=== PATIENT | female | born 1985 | race Hispanic/Latino ===

== ENCOUNTER → 2017-04-05 | Day surgery (SDC) | payer OTHER ==
[~2017-04-05] VITALS: Ht 154.9 cm; Wt 80.7 kg
[~2017-04-05] MED LIST: FERROUS SULFAT325 M1 PO; LEVOTHYROXIN0.112 MG PO; PERCOCET 325 MG1 TA2 PO; PHENTERMINE H37.5 M1 PO; SYNTHROID0.1 MG PO; SYNTHROID125 MCG PO; VITAMIN D50000 IU PO
[2017-04-05 09:38] LABS: ABSOLUTE BASOPHIL COUNT 0 /CUMM (0.0-0.2); ABSOLUTE EOSINOPHIL COUNT 0.3 /CUMM (0.0-0.7); ABSOLUTE GRANULOCYTE CT 5.7 /CUMM (1.4-6.5); ABSOLUTE LYMPH COUNT 2.8 /CUMM (1.2-3.4); ABSOLUTE MONOCYTE COUNT 0.4 /CUMM (0.10-0.60); BASOPHIL % 0.5 % (0.0-2.0); EOSINOPHIL % 2.9 % (0-5); GRANULOCYTE % 61.2 % (42.2-75.2); HEMATOCRIT 36.7 % (37-47); MEAN CORPUSCULAR HGB 27.2 PG (27.0-31.0); MEAN CORPUSCULAR HGB CONC 32.9 G/DL (33.0-37.0); MEAN CORPUSCULAR VOLUME 82.7 FL (81.0-99.0); MEAN PLATELET VOLUME 7.7 FL (7.4-10.4); PLATELET COUNT 387 /CUMM (130-400); RBC DISTRIBUTION WIDTH 13.7 % (11.5-14.5); RED BLOOD CELL CT 4.44 /CUMM (4.20-5.40); WHITE BLOOD CELL COUNT 9.3 /CUMM (4.8-10.8)
[2017-04-05 09:49] LABS: PT 11.4 SEC (9.4-12.5); PTT 29 SEC (25-37)
--- NOTE | 2017-04-06 11:32 | ULTRASOUND REPORT ---
EXAMINATION: INTRAOPERATIVE ULTRASONOGRAPHY CLINICAL INDICATION: D\T\C and ultrasound-guided cryoablation. COMPARISON: None TECHNIQUE/FINDINGS: Ultrasound equipment was dedicated to the operating room for the performance of an intraoperative procedure. 7 images were acquired and are archived in PACS. Please refer to operative notes for procedural detail. IMPRESSION: Administrative dictation for intraoperative ultrasonography and image archiving in PACS. Please refer to operative notes for details.
--- NOTE | 2017-04-06 16:26 | Operative Report ---
Operative/Inv Procedure Report Surgery Date: 04/05/17 Name of Procedure: D&C cryoablation the uterus under ultrasound guidance Pre-Operative Diagnosis: Menorrhagia Post-Operative Diagnosis: Same Estimated Blood Loss: less than 50ml Surgeon/Adobe Flex Developer: Everett OQUENDO,Ashlee Rosales Anesthesia: moderate sedation Operative/Procedure Note Note: Procedure note patient is taking the operating room placed on position after adequate anesthesia patient placed in dorsolithotomy position the vagina from dorsal fashion bladder was catheterized examination under anesthesia performed single-tooth tenaculum placed on the Intralipid surgeons down traction patient tolerated that well. At this point cervix was side 29 Hegar to left insertion of a sharp curet sharp curettage and cervical lysed form Sharp curettage of the endometrial lining was performed 2 specimen sent to pathology at this point the bladder was catheterized filled approximately 250 mL normal saline I Silvadene ultrasound to be performed during cryoablation phases surgery cryoprobe was placed gently under ultrasound guidance into the uterine cavity care was taken not to perforate the uterus which was evident by the ultrasound 8 minutes on each side cryoablation was performed the probe was heated and removed all instruments removed from the vagina the patient was returned spine position she was awakened from anesthesia and transferred recovery room awake alert counts correct
== END ==
LOC: STS 01:44 → XRY 07:00 → STS 07:00 → XRY 11:00
PROVIDERS: Specialist
DX: N92.1 Excessive and frequent menstruation with irregular cycle (principal); E03.9 Hypothyroidism, unspecified; R94.5 Abnormal results of liver function studies
CPT/HCPCS: 36415; 76998; 81001; 81025; 88305; J2250

== ENCOUNTER → 2017-05-16 | Day surgery (SDC) | payer OTHER ==
[~2017-05-16] VITALS: Ht 154.9 cm; Wt 80.7 kg
[~2017-05-16] MED LIST changes: +CEPHALEXIN500 M3 PO; +KETOROLAC TROME10 M1 PO; +NORCO 5-325 TA1 EACH PO; +OXYCODONE-ACET1 EACH PO
--- NOTE | 2017-05-16 14:32 | Operative Report ---
Operative/Inv Procedure Report Surgery Date: 05/16/17 Name of Procedure: Cystoscopy, right ureteroscopy, laser lithotripsy of right ureteral calculus, right retrograde pyelogram, insertion of right double-J ureteral stent Pre-Operative Diagnosis: Right ureteral calculus Post-Operative Diagnosis: Same Estimated Blood Loss: scant Surgeon/Dial Marker: Demarcus OQUENDO,Juan Kerr Anesthesia: laryngeal mask airway Drains: 24 cm 6 [place]an right double-J ureteral stent with long suture Specimens: Urine culture and right ureteral stone fragments Complications: None Condition: Stable Operative Indication: 7 mm right ureteral calculus with right flank pain Operative/Procedure Note Note: The patient was taken to the operating room and identified. She is placed in supine position on the operating table. Timeout was executed appropriately with the patient awake. Gen. anesthesia was induced via LMA. She was then placed in dorsolithotomy position and prepped and draped in usual fashion for cystoscopy. Surgical pause was executed appropriately. Fluoroscopy images taken with a marker on the right side of the abdomen to confirm the correct side of the surgery as well as a correct orientation of the fluoroscopy image. The 22 [place]an cystoscope sheath was placed into the bladder and cystoscopy performed. There were signs of cystitis cystica. Right and left ureteral orifices were normal in location and appearance. Urine specimen was taken for culture. A guidewire was placed through the cystoscope into the right ureter up to the level of the right kidney. Of note the stone could not be seen on fluoroscopy. The cystoscope was removed leaving the guidewire in place. A double-lumen dilating catheter was placed over the wire. A second wire was placed. Leksell ureteroscope was advanced over the second wire. The stone was visualized overlying the sacroiliac joint. Proximal to this the ureter was dilated. Using the 273 holmium laser fiber the stone was fragmented into multiple fragments. Using a spiral basket several fragments were removed. The remaining fragments were felt to be small enough to pass spontaneously. At this point the ureteroscope was removed. The cystoscope was back loaded onto the guidewire. Open-ended catheter was placed over the wire which was subsequently removed. Some contrast was injected to outline the right renal collecting system. A guidewire was placed back through the open-ended catheter which was removed. Under visual fluoroscopic control a 24 cm 6 [place] right double-J ureteral stent was placed with a long suture attached the distal end. Fluoroscopy confirmed the proximal and the stent coiled in an upper pole calyx and distal end coiled in the bladder. Patient tolerated the procedure well and as completion was taken recovery room in stable condition. Completes the operative dictation on the grant of the Findings: 7 mm calculus in right mid ureter overlying the sacroiliac joint Discharge Disposition: PACU
--- NOTE | 2017-05-18 06:44 | RADIOLOGY REPORT ---
EXAMINATION: Intraoperative fluoroscopy CLINICAL INFORMATION: Ureteroscopy with right stent placement COMPARISON: CT abdomen pelvis 05/04/2017 TECHNIQUE: Intraoperative fluoroscopy was provided for use by Dr. Tracy. A total of 44 images were saved to PACS. No radiologist was present during today's procedure. TOTAL FLUOROSCOPIC TIME: 1.1 minutes FINDINGS\E\IMPRESSION: Intraoperative fluoroscopy provided for use by Dr. Tracy. Please see operative note for detailed findings.
== END ==
LOC: STS 01:20
DX: N20.1 Calculus of ureter (principal); Z87.891 Personal history of nicotine dependence; K21.9 Gastro-esophageal reflux disease without esophagitis; E07.9 Disorder of thyroid, unspecified
CPT/HCPCS: 74018; 87086; C2617; J0131; J0690; J1885; J2250; J3250

== ENCOUNTER 2017-05-18 15:22 | Inpatient (IN) | payer OTHER ==
[~2017-05-18] VITALS: Ht 154.9 cm; Wt 80.7 kg
[~2017-05-18 15:22] MED LIST changes: -CEPHALEXIN500 M3 PO; -OXYCODONE-ACET1 EACH PO
[2017-05-18 16:16] LABS: ABSOLUTE BASOPHIL COUNT 0.1 /CUMM (0.0-0.2); ABSOLUTE EOSINOPHIL COUNT 0.1 /CUMM (0.0-0.7); ABSOLUTE GRANULOCYTE CT 17.8 /CUMM (1.4-6.5); ABSOLUTE LYMPH COUNT 1.9 /CUMM (1.2-3.4); ABSOLUTE MONOCYTE COUNT 1.1 /CUMM (0.10-0.60); BASOPHIL % 0.5 % (0.0-2.0); EOSINOPHIL % 0.3 % (0-5); GRANULOCYTE % 84.8 % (42.2-75.2); HEMATOCRIT 24.2 % (37-47); MEAN CORPUSCULAR HGB 27.3 PG (27.0-31.0); MEAN CORPUSCULAR HGB CONC 33.4 G/DL (33.0-37.0); MEAN CORPUSCULAR VOLUME 81.9 FL (81.0-99.0); MEAN PLATELET VOLUME 7.4 FL (7.4-10.4); PLATELET COUNT 366 /CUMM (130-400); RBC DISTRIBUTION WIDTH 14.1 % (11.5-14.5); RED BLOOD CELL CT 2.96 /CUMM (4.20-5.40)
--- NOTE | 2017-05-18 17:33 | ULTRASOUND REPORT ---
EXAMINATION: US RETROPERITONEAL COMPLETE (RENAL) CLINICAL INFORMATION: Right kidney stent removed today. Pain since removal.. COMPARISON: CT scan abdomen pelvis 06/04/2017. Ultrasound abdomen 10/31/2016. TECHNIQUE: Real-time imaging of the kidneys and bladder. Color Doppler exam used. FINDINGS: RIGHT KIDNEY: 12.7 x 6.2 x 4.8 cm (SAG x AP x TRV). The kidney is normal in size, contour, and echogenicity. Renal cortical thickness is normal. There is mild dilatation of renal pelvis and calyces of the right kidney. This has diminished though since the exam of 05/04/2017 CT study. There is no renal stone. There is question of heterogeneous collection around the kidney but is not well visualized on ultrasound. CT exam would be helpful for further exam. LEFT KIDNEY: 10.6 x 5.9 x 4.7 cm (SAG x AP x TRV). The kidney is normal in size, contour, and echogenicity. Renal cortical thickness is normal. No calculi or focal parenchymal lesions. No hydronephrosis. BLADDER: The bladder is empty. IMPRESSION: 1. Mild hydronephrosis of right kidney but this has diminished in severity since the CAT scan of 05/04/2017. 2. Question of heterogeneous collection around the right kidney but not well visualized with ultrasound. CT would be helpful for further assessment..
--- NOTE | 2017-05-18 19:05 | ED GI/GU/ABDOMINAL COMPLAINT ---
History of Present Illness General Chief Complaint: General Adult Stated Complaint: SIB FOR +V/BACK PAIN S/P STENT REMOVA Source: patient, family, old records Exam Limitations: no limitations Vital Signs & Intake/Output Vital Signs & Intake/Output Vital Signs Date Time Temp Pulse Resp B/P B/P Pulse O2 O2 Flow FiO2 Mean Ox Delivery Rate 05/18 2254 98.7 102 18 118/58 97 Room Air 05/19 2231 99.0 104 18 114/60 97 Room Air 05/18 2016 98.6 101 16 132/80 98 Room Air 05/18 1922 96 Room Air 05/19 1911 99.6 103 18 128/75 98 Room Air 05/18 1554 98.8 107 15 123/83 95 Room Air Room Air ED Intake and Output 05/19 0000 05/18 1200 Intake Total 1000 Output Total Balance 1000 Intake, IV 1000 Patient 178 lb Weight Weight Reported by Patient Measurement Method Allergies Coded Allergies: No Known Allergies (05/18/17) Triage Note: PT SENT TO ED BY DR. STEWART FOR +N/V AND R LOWER BACK PAIN THAT RADIATES INTO R FLANK AREA. PT DIAGNOSED WITH KIDNEY STONES AND STENT PLACED ON SUNDAY. PT HAD STENT TAKEN OUT THIS MORNING DUE TO SEVERE PAIN. Triage Nurses Notes Reviewed? yes ? n Is pt currently ? No Onset: Abrupt Duration: day(s): (1), constant, getting worse Timing: recent history Quality/Severity: sharpness, stabbing Severity Numbers: 10 Location: right lower quadrant Radiation: flank Activities at Onset: none Modifying Factors: Worsens With: movement. Associated Symptoms: denies HPI: 31-year-old female history of kidney stones presents to the ER complaining of right lower back and right lower quadrant abdominal pain that has been worse today after she had a ureteral stent removed by Dr. Crawford. The patient states that she had it placed 3 days ago and was having worsening pain so she hadn't taken out today and states the pain is Worse since. She reports some nausea and vomiting. No fever no chills no urinary urgency frequency dysuria. Positive hematuria. She was prescribed Percocet however states it is not helping (Tristen Cobb) Reconcile Medications Cephalexin 500 MG CAPSULE 1 CAP PO Q8H ABX (Reported) Levothyroxine Sodium (Synthroid) 125 MCG TABLET 1 TAB PO DAILY THYROID ( Reported) Oxycodone HCl/Acetaminophen (Oxycodone-Acetaminophen 5-325) 5 MG-325 MG TABLET 1-2 TAB PO Q4H PRN PAIN (Reported) (Theron Alcazar DO) Past History Travel History Traveled to [place] past 21 day No Medical History Any Pertinent Medical History? see below for history Neurological: numbness and weakness in her right arm EENT: NONE Cardiovascular: NONE Respiratory: NONE Gastrointestinal: NONE Hepatic: ELEVATED LFT'S HYDA SCAN LIVER BIOPSY 04/25/17 Renal: NONE Endocrine: hypothyroidism Blood Disorders: anemia Surgical History Surgical History: , X3 Psychosocial History What is your primary language Faroese Tobacco Use: Never used Family History Family History, If Any: MOTHER FH: hypothyroidism FATHER FH: diabetes mellitus FH: hypercholesterolemia FHx: hypertension Hx Contributory? No (Tristen Cobb) Review of Systems Review of Systems Constitutional: Reports: see HPI. Comments Review of systems: See HPI, All other systems negative. Constitutional, no chills no fever, HEENT: no sore throat no congestion, Cardiovascular: No chest pain , no palpitation Skin: no rashes, no change in skin Respiratory: No dyspnea no cough no sputum GI: nausea vomiting, no diarrhea, : No dysuria hematuria, no frequency Muscle skeletal: No joint pain, no back pain Neurologic: , no headache Psych: No stress Heme/endocrine: No bruising Immunology: No lymphadenopathy (Tristen Cobb) Physical Exam Physical Exam General Appearance: alert, mild distress Gastrointestinal: soft, tenderness (RLQ) Comments: Well-developed well-nourished person in no acute distress HEENT: Normal EENT exam; PERRL, EOMI, HEAD is atraumatic. moist mucous membranes. Neck: Supple, normal range of motion Back: Nontender, right CVA tenderness. Full range of motion Cardiovascular: Regular rate and rhythms no murmurs rubs Respiratory: Chest nontender.There were no bony deformities, no asymmetry. No respiratory distress. Patient speaking in full complete sentences. Breath sounds clear to auscultation bilaterally: NO W/R/R Abdomen: Soft, RLQ TENDERNESS, nondistended, no appreciable organomegaly. Normal bowel sounds. No rebound/guarding, Extremity: No edema, full range of motion of extremities Neuro: Alert oriented x3, motor sensory normal, There were no obvious focal neurologic abnormalities. Skin: No appreciable rash on exposed skin, skin is warm and dry. Psych: Mood and affect is normal, memory and judgment is normal. Core Measures ACS in differential dx? No Sepsis Present: No Sepsis Focused Exam Completed? No (Angely CASIANO,Tristen) Progress Differential Diagnosis: renal injury, pyelo, uti, abscess, obstruction, appy Plan of Care: Orders Procedure Date/time Status Nothing by Mouth 05/19 B Active CBC WITHOUT DIFFERENTIAL 05/19 0600 Active NUTRITIONAL CONSULT 05/19 0013 Active ED Holding Orders 05/18 2140 Active Admit to inpatient 05/18 2140 Active Vital Signs 05/18 2140 Complete Code Status 05/18 2140 Active Patient Data 05/19 2111 Active Vital Signs 05/19 2111 Active Activity/Ambulation 05/19 2111 Active TYPE & SCREEN (NOT X-MATCH) 05/19 2111 Complete Add-on Test (ER Only) 05/18 1955 Active Intake & Output 05/18 1921 Active Add-on Test (ER Only) 05/18 1653 Active CULTURE,URINE 05/18 1605 Active LACTIC ACID 05/18 1600 Complete URINE 05/18 1551 Complete URINALYSIS 05/18 1551 Complete COMPREHENSIVE METABOLIC PANEL 05/18 1551 Complete CBC WITHOUT DIFFERENTIAL 05/18 1551 Complete VTE Mechanical Prophylaxis 05/18 UNK Active Nursing Misc 05/18 UNK Active Current Medications Sig/Manoj Start time Last Medication Dose Stop Time Status Admin Levothyroxine Sodium 0.125 MG DAILY AC 05/19 0700 AC (Synthroid) Acetaminophen 650 MG Q4P PRN 05/18 2114 AC 05/18 (Tylenol) 214 Cefazolin Sodium 1,000 MG Q8H 05/18 2114 AC 05/18 (Kefzol-Ancef Inj) 2146 Morphine Sulfate 2 MG Q4P PRN 05/18 2114 AC (MORPHINE SULFATE) Morphine Sulfate 4 MG Q4P PRN 05/18 2114 AC (MORPHINE SULFATE) Ondansetron HCl 4 MG Q6P PRN 05/18 2114 AC (Zofran) Sodium Chloride 1,000 ML Q20H 05/18 2114 AC 05/18 (Normal Saline 0.9%) 2309 Laboratory Tests 05/18/17 1605: Urine Color PINK H, Urine Clarity CLDY H, Urine pH 7.0, Ur Specific [place] 1.010, Urine Protein 30 H, Urine Ketones NEG, Urine Nitrite NEG, Urine Bilirubin NEG, Urine Urobilinogen 0.2, Ur Leukocyte Esterase TRACE H, Ur Microscopic SEDIMENT EXAMINED, Urine RBC >75 H, Urine WBC 3-5 H, Ur Epithelial Cells MOD H, Urine Bacteria FEW H, Urine Mucus FEW, Urine Hemoglobin LARGE H, Urine Glucose NEG, Urine Test NEGATIVE 05/18/17 1600: Anion Gap 16, Estimated GFR > 60, BUN/Creatinine Ratio 11.7, Glucose 104 H, Lactic Acid 1.1, Calcium 9.4, Total Bilirubin 0.7, AST 37 H, ALT 73 H, Alkaline Phosphatase 96, Total Protein 7.9, Albumin 4.5, Globulin 3.4, Albumin/ Globulin Ratio 1.3, CBC w Diff MAN DIFF ORDERED, RBC 2.96 L, MCV 81.9, MCH 27.3 , MCHC 33.4, RDW 14.1, MPV 7.4, Gran % 84.8 H, Lymphocytes % 9.3 L, Monocytes % 5.1, Eosinophils % 0.3, Basophils % 0.5, Absolute Granulocytes 17.8 H, Segmented Neutrophils 86 H, Absolute Lymphocytes 1.9, Lymphocytes 9 L, Monocytes 5, Absolute Monocytes 1.1 H, Absolute Eosinophils 0.1, Absolute Basophils 0.1, Platelet Estimate VERIFIED BY SMEAR, Normocytic RBCs VERIFIED, Normochromic RBCs VERIFIED, Fld Total RBCs Counted 100 Microbiology 05/18 1605 URINE ROUT: Urine Culture - RECD Labs ordered old records reviewed patient medicated with Toradol, ultrasound ordered On repeat evaluation I discussed with patient her ultrasound and lab work CAT scan ordered reports slight improvement with Toradol morphine 4 IV ordered 2014 i d/w the pt and family her ct results, reports improvement in pain with morphine, pending callback from urology [address] crawford-who advised he will call the surgical PA the patient needs close observation will admit, trend H&H IV fluids pain control believes elevated White blood cell count is reactive given negative urine culture afebrile I discussed with the patient's family plan of care they agree with plan she is declining anything for pain offered Diagnostic Imaging: Viewed by Me: CT Scan, Ultrasound. Discussed w/RAD: CT Scan, Ultrasound. Radiology Impression: PATIENT: KAYLA STRONG PRESENT AGE: 31 PATIENT ACCOUNT NO: [id number] : 83 LOCATION: [facility] ORDERING PHYSICIAN: Tristen CASIANO SERVICE DATE: 05/18/17 EXAM TYPE: CAT - CT ABD & PELVIS W IV CONTRAST EXAMINATION: CT ABDOMEN AND PELVIS WITH CONTRAST CLINICAL INFORMATION: Fluid collection around right kidney seen on renal ultrasound. History of removal of renal stent with right flank pain. COMPARISON: Renal ultrasound today. CT abdomen pelvis study 05/04/2017 TECHNIQUE: Multidetector volumetric imaging was performed of the abdomen and pelvis following IV administration of 95 mL of Optiray 320 intravenous contrast. Sagittal and coronal reformatted images were obtained on the technologist's workstation. DLP: 441.09 mGy-cm FINDINGS: LUNG BASES: Linear atelectasis at both lung bases. There is no pleural effusion. LIVER, GALLBLADDER, AND BILIARY TREE: Mild low attenuation of liver parenchyma. No focal liver lesion. No intrapelvic bile duct dilatation. The gallbladder is unremarkable with no evidence of radiopaque gallstones, gallbladder wall thickening, or obvious pericholecystic inflammatory changes. PANCREAS: Unremarkable. SPLEEN: Unremarkable. ADRENAL GLANDS: Unremarkable. KIDNEYS AND URETERS: There is a collection surrounding the right kidney measuring about 2 cm in thickness. This has a density measurement of 68 Hounsfield units. This density is above that of simple fluid. The contrast has not reached the collecting system consistent with the phase of imaging performed. The fluid in the mildly dilated renal pelvis has a density of 21 Hounsfield units. Though this fluid could contain urine the high density of the fluid suggests presence of hemorrhage. There is no evidence of active extravasation. The fluid extends along the paracolic gutter and around the right ureter is a tracks down into the bladder with fluid seen in the pelvis at the cul-de-sac and along the right side of the pelvis. There is dilatation of renal pelvis and calyces to the ureterovesical junction. No stones seen in the kidney or the ureter. There is normal enhancement of the cortex of the right kidney. No evidence of infarct or inflammation. The left kidney and ureter are normal. BLADDER: Unremarkable. GASTROINTESTINAL TRACT: The small and large bowel are unremarkable. The appendix is unremarkable. ABDOMINAL WALL: No significant hernia is appreciated. LYMPH NODES: Normal. VASCULAR: Unremarkable. PELVIC VISCERA: The uterus is anteverted. There is a follicle/cyst in the right ovary measuring 2.2 cm. OSSEOUS STRUCTURES: Unremarkable. IMPRESSION: There is a large collection around the right kidney and extending along the right ureter down into the pelvis. This has a density measurement of about 68 Hounsfield units consistent with this containing hemorrhagic fluid. There is hydronephrosis of the right kidney without calculus. This critical result was discussed with Dr. Au on 05/18/2017, 8:15 PM and it was ascertained that the content and urgency of the report was understood at the time of direct communication. DICTATED BY: Pranay Rutledge MD DATE/TIME DICTATED:05/18/171954 SALES REPRESENTATIVE GRAPHIC ART:ELISSA DATE/TIME TRANSCRIBED:05/18/171954 CONFIDENTIAL, DO NOT COPY WITHOUT APPROPRIATE AUTHORIZATION. <Electronically signed in Other Vendor System> SIGNED BY: Pranay Rutledge MD 05/18/172017, PATIENT: KAYLA STRONG PRESENT AGE: 31 PATIENT ACCOUNT NO: [id number] : 83 LOCATION: [facility] ORDERING PHYSICIAN: Tristen CASIANO SERVICE DATE: 05/18/17 EXAM TYPE : CAT - CT ABD & PELVIS W IV CONTRAST EXAMINATION: CT ABDOMEN AND PELVIS WITH CONTRAST CLINICAL INFORMATION: Fluid collection around right kidney seen on renal ultrasound. History of removal of renal stent with right flank pain. COMPARISON: Renal ultrasound today. CT abdomen pelvis study 05/04/2017 TECHNIQUE : Multidetector volumetric imaging was performed of the abdomen and pelvis following IV administration of 95 mL of Optiray 320 intravenous contrast. Sagittal and coronal reformatted images were obtained on the technologist's workstation. DLP: 441.09 mGy-cm FINDINGS: LUNG BASES: Linear atelectasis at both lung bases. There is no pleural effusion. LIVER, GALLBLADDER, AND BILIARY TREE: Mild low attenuation of liver parenchyma. No focal liver lesion. No intrapelvic bile duct dilatation. The gallbladder is unremarkable with no evidence of radiopaque gallstones, gallbladder wall thickening, or obvious pericholecystic inflammatory changes. PANCREAS: Unremarkable. SPLEEN: Unremarkable. ADRENAL GLANDS: Unremarkable. KIDNEYS AND URETERS: There is a collection surrounding the right kidney measuring about 2 cm in thickness. This has a density measurement of 68 Hounsfield units. This density is above that of simple fluid. The contrast has not reached the collecting system consistent with the phase of imaging performed. The fluid in the mildly dilated renal pelvis has a density of 21 Hounsfield units. Though this fluid could contain urine the high density of the fluid suggests presence of hemorrhage. There is no evidence of active extravasation. The fluid extends along the paracolic gutter and around the right ureter is a tracks down into the bladder with fluid seen in the pelvis at the cul-de-sac and along the right side of the pelvis. There is dilatation of renal pelvis and calyces to the ureterovesical junction. No stones seen in the kidney or the ureter. There is normal enhancement of the cortex of the right kidney. No evidence of infarct or inflammation. The left kidney and ureter are normal. BLADDER: Unremarkable. GASTROINTESTINAL TRACT: The small and large bowel are unremarkable. The appendix is unremarkable. ABDOMINAL WALL: No significant hernia is appreciated. LYMPH NODES: Normal. VASCULAR: Unremarkable. PELVIC VISCERA: The uterus is anteverted. There is a follicle/cyst in the right ovary measuring 2.2 cm. OSSEOUS STRUCTURES: Unremarkable. IMPRESSION: There is a large collection around the right kidney and extending along the right ureter down into the pelvis. This has a density measurement of about 68 Hounsfield units consistent with this containing hemorrhagic fluid. There is hydronephrosis of the right kidney without calculus. This critical result was discussed with Dr. Au on 05/18/2017, 8:15 PM and it was ascertained that the content and urgency of the report was understood at the time of direct communication. DICTATED BY: Pranay Rutledge MD DATE/TIME DICTATED:05/18/171954 SALES REPRESENTATIVE GRAPHIC ART:ELISSA DATE/TIME TRANSCRIBED:05/18/171954 CONFIDENTIAL, DO NOT COPY WITHOUT APPROPRIATE AUTHORIZATION. <Electronically signed in Other Vendor System> SIGNED BY: Pranay Rutledge MD 05/18/172017 Initial ED EKG: none (Tristen Cobb) Departure Departure Time of Disposition: 2048 Disposition: STILL A PATIENT Condition: Stable Clinical Impression Primary Impression: Kidney hematoma Referrals: Abilio Fitzgerald MD (PCP/Family) Departure Forms: Customer Survey General Discharge Information Admission Note Spoke With: Juan Tracy MD Documentation of Exam: Documentation of any treatments & extenuating circumstances including Concerns Regarding Discharge (functional status, medication knowledge or non-compliance, living conditions, etc.) that warrant an admission rather than observation: IV fluids IV pain control, trend H and H premature discharge would BE medically harmful (Angely CASIANO,Tristen) Admission Note Documentation of Exam: Documentation of any treatments & extenuating circumstances including Concerns Regarding Discharge (functional status, medication knowledge or non-compliance, living conditions, etc.) that warrant an admission rather than observation: I Saw and personally examined the patient and I agree with the PAs evaluation. He is in no acute distress on my examination. PA/DEPUTY PROSECUTING ATTORNEY Co-Sign Statement Statement: ED Attending supervision documentation- [x] I saw and evaluated the patient. I have also reviewed all the pertinent lab results and diagnostic results. I agree with the findings and the plan of care as documented in the PA's/DEPUTY PROSECUTING ATTORNEY's documentation. [] I have reviewed the ED Record and agree with the PA's/DEPUTY PROSECUTING ATTORNEY's documentation. [] Additions or exceptions (if any) to the PAs/DEPUTY PROSECUTING ATTORNEY's note and plan are summarized below: [] (Theron Alcazar DO
--- NOTE | 2017-05-18 20:18 | CT SCAN REPORT ---
EXAMINATION: CT ABDOMEN AND PELVIS WITH CONTRAST CLINICAL INFORMATION: Fluid collection around right kidney seen on renal ultrasound. History of removal of renal stent with right flank pain. COMPARISON: Renal ultrasound today. CT abdomen pelvis study 05/04/2017 TECHNIQUE: Multidetector volumetric imaging was performed of the abdomen and pelvis following IV administration of 95 mL of Optiray 320 intravenous contrast. Sagittal and coronal reformatted images were obtained on the technologist's workstation. DLP: 441.09 mGy-cm FINDINGS: LUNG BASES: Linear atelectasis at both lung bases. There is no pleural effusion. LIVER, GALLBLADDER, AND BILIARY TREE: Mild low attenuation of liver parenchyma. No focal liver lesion. No intrapelvic bile duct dilatation. The gallbladder is unremarkable with no evidence of radiopaque gallstones, gallbladder wall thickening, or obvious pericholecystic inflammatory changes. PANCREAS: Unremarkable. SPLEEN: Unremarkable. ADRENAL GLANDS: Unremarkable. KIDNEYS AND URETERS: There is a collection surrounding the right kidney measuring about 2 cm in thickness. This has a density measurement of 68 Hounsfield units. This density is above that of simple fluid. The contrast has not reached the collecting system consistent with the phase of imaging performed. The fluid in the mildly dilated renal pelvis has a density of 21 Hounsfield units. Though this fluid could contain urine the high density of the fluid suggests presence of hemorrhage. There is no evidence of active extravasation. The fluid extends along the paracolic gutter and around the right ureter is a tracks down into the bladder with fluid seen in the pelvis at the cul-de-sac and along the right side of the pelvis. There is dilatation of renal pelvis and calyces to the ureterovesical junction. No stones seen in the kidney or the ureter. There is normal enhancement of the cortex of the right kidney. No evidence of infarct or inflammation. The left kidney and ureter are normal. BLADDER: Unremarkable. GASTROINTESTINAL TRACT: The small and large bowel are unremarkable. The appendix is unremarkable. ABDOMINAL WALL: No significant hernia is appreciated. LYMPH NODES: Normal. VASCULAR: Unremarkable. PELVIC VISCERA: The uterus is anteverted. There is a follicle/cyst in the right ovary measuring 2.2 cm. OSSEOUS STRUCTURES: Unremarkable. IMPRESSION: There is a large collection around the right kidney and extending along the right ureter down into the pelvis. This has a density measurement of about 68 Hounsfield units consistent with this containing hemorrhagic fluid. There is hydronephrosis of the right kidney without calculus. This critical result was discussed with Dr. Au on 05/18/2017, 8:15 PM and it was ascertained that the content and urgency of the report was understood at the time of direct communication.
[2017-05-18] MEDS ORDERED: CEPHALEXIN500 M3 PO (21:43)
[2017-05-18] MEDS ORDERED: OXYCODONE-ACET1 EACH PO (21:44)
[2017-05-18 22:55] VITALS: BP 118/58
[2017-05-19 07:00] VITALS: BP 124/70
--- NOTE | 2017-05-19 08:16 | History & Physical Pre-Op ---
General Information and HPI MD Statement: I have seen and personally examined KAYLA STRONG and documented this H&P. The patient is a 31 year old F who presented with a patient stated chief complaint of [ R flank pain and gross hematuria]. History of Present Illness: This patient originally presented to the ER with R flank pain. A CT scan showed a 7 mm R proximal ureteral stone. She was discharged and then seen in the office. She continued to complain of R flank pain and after discussing treatment options she was scheduled for R ureteroscopy. On 05/16/17 she underwent R ureteroscopy at which time the stone was seen to have migrated to the R mid ureter. She underwent laser lithotripsy and basket extraction of the stone fragments and insertion of a R ureteral stent. She was seen in the office on 05/18/17 complaining of R flank pain and at that time it was felt to be due to the R ureteral stent. The stent was removed but her pain did not improve. Therefore she was told to go to the ER for labs and imaging. Her CBC showed a Hct of 24. It was [address] scan showed a large R perinephric hematoma. There was mild R hydro, improved compared to pre op and no residual stone fragments were seen. She is now admitted for pain control and monitoring of her R perinephric hematoma Allergies/Medications Allergies: Coded Allergies: No Known Allergies (05/18/17) Home Med list Cephalexin 500 MG CAPSULE 1 CAP PO Q8H ABX (Reported) Levothyroxine Sodium (Synthroid) 125 MCG TABLET 1 TAB PO DAILY THYROID ( Reported) Oxycodone HCl/Acetaminophen (Oxycodone-Acetaminophen 5-325) 5 MG-325 MG TABLET 1-2 TAB PO Q4H PRN PAIN (Reported) Compliance With Home Meds: GOOD Past History Medical History Blood Transfusion Hx: No Neurological: numbness and weakness in her right arm-RESOLVED EENT: NONE Cardiovascular: ANEMIA Respiratory: NONE Gastrointestinal: NONE Hepatic: ELEVATED LFT'S HYDA SCAN LIVER BIOPSY 04/25/17 Renal: nephrolithiasis Musculoskeletal: NONE Psychiatric: NONE Endocrine: Natasha's thyroiditis, hypothyroidism Blood Disorders: anemia, IRON IV YEARLY Cancer(s): NONE 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 Home Services at Home None Smoking Status: Former Smoker Exam & Diagnostic Data Last 24 Hrs of Vital Signs/I&O Vital Signs Date Time Temp Pulse Resp B/P B/P Pulse O2 O2 Flow FiO2 Mean Ox Delivery Rate 05/19 0700 99.7 110 20 124/70 94 05/19 0600 110 05/18 2255 98.7 102 18 118/58 97 Room Air 05/18 2232 99.0 104 18 114/60 97 Room Air 05/18 2016 98.6 101 16 132/80 98 Room Air 05/18 1922 96 Room Air 05/18 191 99.6 103 18 128/75 98 Room Air 05/18 1554 98.8 107 15 123/83 95 Room Air Room Air Intake & Output 05/19 1600 05/19 0800 05/19 0000 Intake Total 450 1000 Output Total 900 400 Balance -450 600 Intake, IV 450 1000 Intake, Oral 0 Number 0 Bowel Movements Output, Urine 900 400 Patient 178 lb Weight Weight Reported by Patient Measurement Method Lying in bed. No acute distress. Mild discomfort Lungs: normal respiratory effort Heart: RRR. Mild tachycardia Back: R CVA tenderness Abd: RUQ tenderness. Mild RLQ tenderness. No peritoneal signs Extrems: No calf tenderness Laboratory Tests 05/19 05/18 0735 1605 Hematology CBC w Diff Pending WBC Pending RBC Pending Hgb Pending Hct Pending MCV Pending MCH Pending MCHC Pending RDW Pending Plt Count Pending MPV Pending Urines Urine Color (YEL,AMB,STR) PINK H Urine Clarity (CLEAR) CLDY H Urine pH (5.0 - 8.0) 7.0 Ur Specific [place] (1.001 - 1.035) 1.010 Urine Protein (NEG,<30 MG/DL) 30 H Urine Ketones (NEG) NEG Urine Nitrite (NEG) NEG Urine Bilirubin (NEG) NEG Urine Urobilinogen (0.1 - 1.0 EU/dl) 0.2 Ur Leukocyte Esterase (NEG) TRACE H Ur Microscopic SEDIMENT EXAMINED Urine RBC (0 - 5 /HPF) >75 H Urine WBC (0 - 2 /HPF) 3-5 H Ur Epithelial Cells (NONE,FEW) MOD H Urine Bacteria (NEG/NONE) FEW H Urine Mucus (FEW,NONE) FEW Urine Hemoglobin (NEG) LARGE H Urine Glucose (N MG/DL) NEG Urine Test NEGATIVE 05/18 1600 Chemistry Sodium (137 - 145 mmol/L) 137 Potassium (3.5 - 5.1 mmol/L) 4.0 Chloride (98 - 107 mmol/L) 96 L Carbon Dioxide (22 - 30 mmol/L) 26 Anion Gap (5 - 16) 16 BUN (7 - 17 mg/dL) 7 Creatinine (0.5 - 1.0 mg/dL) 0.6 Estimated GFR (>60 ml/min) > 60 BUN/Creatinine Ratio (7 - 25 %) 11.7 Glucose (65 - 99 mg/dL) 104 H Lactic Acid (0.7 - 2.1 mmol/L) 1.1 Calcium (8.4 - 10.2 mg/dL) 9.4 Total Bilirubin (0.2 - 1.3 mg/dL) 0.7 AST (14 - 36 U/L) 37 H ALT (9 - 52 U/L) 73 H Alkaline Phosphatase (<127 U/L) 96 Total Protein (6.3 - 8.2 g/dL) 7.9 Albumin (3.5 - 5.0 g/dL) 4.5 Globulin (1.9 - 4.2 gm/dL) 3.4 Albumin/Globulin Ratio (1.1 - 2.2 %) 1.3 Hematology CBC w Diff MAN DIFF ORDERED WBC (4.8 - 10.8 /CUMM) 21.0 H RBC (4.20 - 5.40 /CUMM) 2.96 L Hgb (12.0 - 16.0 G/DL) 8.1 L Hct (37 - 47 %) 24.2 L MCV (81.0 - 99.0 FL) 81.9 MCH (27.0 - 31.0 PG) 27.3 MCHC (33.0 - 37.0 G/DL) 33.4 RDW (11.5 - 14.5 %) 14.1 Plt Count (130 - 400 /CUMM) 366 MPV (7.4 - 10.4 FL) 7.4 Gran % (42.2 - 75.2 %) 84.8 H Lymphocytes % (20.5 - 51.1 %) 9.3 L Monocytes % (1.7 - 9.3 %) 5.1 Eosinophils % (0 - 5 %) 0.3 Basophils % (0.0 - 2.0 %) 0.5 Absolute Granulocytes (1.4 - 6.5 /CUMM) 17.8 H Segmented Neutrophils (42.2 - 75.2 %) 86 H Absolute Lymphocytes (1.2 - 3.4 /CUMM) 1.9 Lymphocytes (20.5 - 51.1 %) 9 L Monocytes (1.7 - 9.3 %) 5 Absolute Monocytes (0.10 - 0.60 /CUMM) 1.1 H Absolute Eosinophils (0.0 - 0.7 /CUMM) 0.1 Absolute Basophils (0.0 - 0.2 /CUMM) 0.1 Platelet Estimate (ADEQUATE) VERIFIED BY SMEAR Normocytic RBCs VERIFIED Normochromic RBCs VERIFIED Other Body Source F[place] Total RBCs Counted (%) 100 Assessment/Plan Assessment/Plan: Imp: 1. R perinephric hematoma after R ureteroscopy and laser litho of R mid ureteral stone on 05/16/17 2. hypothyroidism 3. Hx of mildly elevated LFT's Plan: 1. Conservative management of R perinephric hematoma 2. Bed rest except to bathroom 3. Serial CBC 4. Gentle IV hydration 5. Transfuse as needed 6. Pain meds 6. Will likely start diet later today As Ranked By This Provider Problem List: 1. Perinephric hematoma 2. Hypothyroidism 3. Elevated LFTs
[2017-05-19 08:32] LABS: ABSOLUTE BASOPHIL COUNT 0 /CUMM (0.0-0.2); ABSOLUTE EOSINOPHIL COUNT 0.1 /CUMM (0.0-0.7); ABSOLUTE MONOCYTE COUNT 0.9 /CUMM (0.10-0.60); RED BLOOD CELL CT 2.52 /CUMM (4.20-5.40); WHITE BLOOD CELL COUNT 15.7 /CUMM (4.8-10.8)
[2017-05-19 08:46] LABS: ABSOLUTE GRANULOCYTE CT 12.8 /CUMM (1.4-6.5); ABSOLUTE LYMPH COUNT 1.8 /CUMM (1.2-3.4); BASOPHIL % 0 % (0.0-2.0); EOSINOPHIL % 0.9 % (0-5); GRANULOCYTE % 81.4 % (42.2-75.2); HEMATOCRIT 20.4 % (37-47); MEAN CORPUSCULAR HGB 27.3 PG (27.0-31.0); MEAN CORPUSCULAR HGB CONC 33.6 G/DL (33.0-37.0); MEAN CORPUSCULAR VOLUME 81.1 FL (81.0-99.0); MEAN PLATELET VOLUME 7.8 FL (7.4-10.4); PLATELET COUNT 282 /CUMM (130-400); RBC DISTRIBUTION WIDTH 14.1 % (11.5-14.5)
[2017-05-19 16:00] VITALS: BP 130/80
[2017-05-19 17:00] LABS: ABSOLUTE BASOPHIL COUNT 0 /CUMM (0.0-0.2); ABSOLUTE EOSINOPHIL COUNT 0.1 /CUMM (0.0-0.7); ABSOLUTE GRANULOCYTE CT 15.1 /CUMM (1.4-6.5); ABSOLUTE LYMPH COUNT 1.9 /CUMM (1.2-3.4); ABSOLUTE MONOCYTE COUNT 0.9 /CUMM (0.10-0.60); BASOPHIL % 0.1 % (0.0-2.0); EOSINOPHIL % 0.3 % (0-5); HEMATOCRIT 25.1 % (37-47); MEAN CORPUSCULAR HGB 28.4 PG (27.0-31.0); MEAN CORPUSCULAR HGB CONC 34.1 G/DL (33.0-37.0); MEAN CORPUSCULAR VOLUME 83.3 FL (81.0-99.0); MEAN PLATELET VOLUME 7.7 FL (7.4-10.4); PLATELET COUNT 316 /CUMM (130-400); RBC DISTRIBUTION WIDTH 14.1 % (11.5-14.5); RED BLOOD CELL CT 3.01 /CUMM (4.20-5.40); WHITE BLOOD CELL COUNT 17.9 /CUMM (4.8-10.8)
[2017-05-19 20:59] VITALS: BP 135/77
[2017-05-20 06:40] VITALS: BP 118/72
[2017-05-20 08:34] LABS: ABSOLUTE BASOPHIL COUNT 0.1 /CUMM (0.0-0.2); ABSOLUTE EOSINOPHIL COUNT 0.2 /CUMM (0.0-0.7); ABSOLUTE GRANULOCYTE CT 12.5 /CUMM (1.4-6.5); ABSOLUTE LYMPH COUNT 2.4 /CUMM (1.2-3.4); ABSOLUTE MONOCYTE COUNT 1.1 /CUMM (0.10-0.60); BASOPHIL % 0.3 % (0.0-2.0); EOSINOPHIL % 0.9 % (0-5); GRANULOCYTE % 77.2 % (42.2-75.2); HEMATOCRIT 24.3 % (37-47); MEAN CORPUSCULAR HGB 28.1 PG (27.0-31.0); MEAN CORPUSCULAR HGB CONC 33.7 G/DL (33.0-37.0); MEAN CORPUSCULAR VOLUME 83.5 FL (81.0-99.0); MEAN PLATELET VOLUME 7.7 FL (7.4-10.4); PLATELET COUNT 358 /CUMM (130-400); RBC DISTRIBUTION WIDTH 13.9 % (11.5-14.5); RED BLOOD CELL CT 2.92 /CUMM (4.20-5.40); WHITE BLOOD CELL COUNT 16.1 /CUMM (4.8-10.8)
--- NOTE | 2017-05-20 09:41 | PN- Urology ---
Subjective Subjective: Looks and feels a little better. Using tylenol for pain Objective Vital Signs and I&Os Vital Signs Date Time Temp Pulse Resp B/P B/P Pulse O2 O2 Flow FiO2 Mean Ox Delivery Rate 05/20 0640 99.6 97 20 118/72 95 05/19 2100 103 05/19 2059 99.5 103 20 135/77 96 Room Air 05/19 1600 98.8 105 18 130/80 94 Room Air 05/19 1443 98.8 Intake & Output 05/20 1600 05/20 0800 05/20 0000 05/19 1600 05/19 0805/19 0000 Intake Total 612 166 5933 450 1000 Output Total 014 258 1671 900 400 Balance 260 -60 400 -450 600 Intake, Blood 500 Product Intake, IV 800 400 135 615 9904 Intake, Oral 60 240 0 0 Number 0 0 Bowel Movements Output, Urine 000 197 8732 900 400 Patient 178 lb 178 lb Weight Weight Reported by Patient Measurement Method Back: mild R CVA tenderness Abd: soft and non tender. Some R side abd tenderness. No peritoneal signs Voiding spontaneously. Urine is pink Transfused 2 units PRBC's yesterday with improvement in Hct This AM Hct=24.3 Laboratory Tests 05/20 05/19 0740 1625 Hematology CBC w Diff NO MAN DIFF REQ NO MAN DIFF REQ WBC (4.8 - 10.8 /CUMM) 16.1 H 17.9 H RBC (4.20 - 5.40 /CUMM) 2.92 L 3.01 L Hgb (12.0 - 16.0 G/DL) 8.2 L 8.6 L Hct (37 - 47 %) 24.3 L 25.1 L MCV (81.0 - 99.0 FL) 83.5 83.3 MCH (27.0 - 31.0 PG) 28.1 28.4 MCHC (33.0 - 37.0 G/DL) 33.7 34.1 RDW (11.5 - 14.5 %) 13.9 14.1 Plt Count (130 - 400 /CUMM) 358 316 MPV (7.4 - 10.4 FL) 7.7 7.7 Gran % (42.2 - 75.2 %) 77.2 H 84.0 H Lymphocytes % (20.5 - 51.1 %) 14.9 L 10.6 L Monocytes % (1.7 - 9.3 %) 6.7 5.0 Eosinophils % (0 - 5 %) 0.9 0.3 Basophils % (0.0 - 2.0 %) 0.3 0.1 Absolute Granulocytes (1.4 - 6.5 /CUMM) 12.5 H 15.1 H Absolute Lymphocytes (1.2 - 3.4 /CUMM) 2.4 1.9 Absolute Monocytes (0.10 - 0.60 /CUMM) 1.1 H 0.9 H Absolute Eosinophils (0.0 - 0.7 /CUMM) 0.2 0.1 Absolute Basophils (0.0 - 0.2 /CUMM) 0.1 0 Assessment/Plan Assessment/Plan Imp: 1. R perinephric hematoma after R ureteroscopy 2. Hypothyroidism 3. Hx of mildly elevated LFT's\ Plan: 1. Bed rest except for bathroom privileges until urine is grossly clear 2. IV hydration 3. Check Hct, BMP and INR, PTT in Am 4. Regular diet as tolerated 5. Will d/c abx tomorrow AM Core Measures Venous Thromboembolism VTE Risk Factors Immobility (`) No Mechanical VTE Prophylaxis d/t Other (venodynes have been ordered) No VTE Pharm Prophylaxis d/t Bleeding (Active)
[2017-05-20 15:18] VITALS: BP 120/72
[2017-05-20 21:23] VITALS: BP 127/80
[2017-05-21 06:52] VITALS: BP 126/78
[2017-05-21 08:29] LABS: ABSOLUTE BASOPHIL COUNT 0 /CUMM (0.0-0.2); ABSOLUTE EOSINOPHIL COUNT 0.3 /CUMM (0.0-0.7); ABSOLUTE GRANULOCYTE CT 9.7 /CUMM (1.4-6.5); ABSOLUTE LYMPH COUNT 2.5 /CUMM (1.2-3.4); ABSOLUTE MONOCYTE COUNT 0.6 /CUMM (0.10-0.60); BASOPHIL % 0.4 % (0.0-2.0); EOSINOPHIL % 2.1 % (0-5); GRANULOCYTE % 73.9 % (42.2-75.2); HEMATOCRIT 23.4 % (37-47); MEAN CORPUSCULAR HGB 28.7 PG (27.0-31.0); MEAN CORPUSCULAR HGB CONC 34.2 G/DL (33.0-37.0); MEAN CORPUSCULAR VOLUME 83.8 FL (81.0-99.0); MEAN PLATELET VOLUME 7.6 FL (7.4-10.4); PLATELET COUNT 403 /CUMM (130-400); RED BLOOD CELL CT 2.79 /CUMM (4.20-5.40); WHITE BLOOD CELL COUNT 13.1 /CUMM (4.8-10.8)
[2017-05-21 08:32] LABS: PT 13.1 SEC (9.4-12.5); PTT 27 SEC (25-37)
--- NOTE | 2017-05-21 10:13 | PN- Urology ---
Subjective Subjective: R flank pain improved. Now controlled with po tylenol Objective Vital Signs and I&Os Vital Signs Date Time Temp Pulse Resp B/P B/P Pulse O2 O2 Flow FiO2 Mean Ox Delivery Rate 05/21 0652 98.7 86 20 126/78 96 05/20 2123 98.5 93 18 127/80 99 Room Air 05/20 1518 99.5 92 20 120/72 97 Room Air Intake & Output 05/21 1600 05/21 0800 05/21 0000 05/20 1600 05/20 0805/20 0000 Intake Total 1195 355 5438 860 640 Output Total 400 250 400 600 700 Balance 467 500 2359 260 -60 Intake, IV 800 1200 800 400 Intake, Oral 240 360 700 60 240 Number 0 Bowel Movements Output, Urine 400 250 400 600 700 Back: mild R CVA tenderness Abd: soft. Mild RUQ tenderness. No peritoneal signs voiding spontaneously. Urine is pink but is improving Laboratory Tests 05/21 0742 Chemistry Sodium (137 - 145 mmol/L) 138 Potassium (3.5 - 5.1 mmol/L) 3.6 Chloride (98 - 107 mmol/L) 106 Carbon Dioxide (22 - 30 mmol/L) 22 Anion Gap (5 - 16) 10 BUN (7 - 17 mg/dL) 5 L Creatinine (0.5 - 1.0 mg/dL) 0.4 L Estimated GFR (>60 ml/min) > 60 BUN/Creatinine Ratio (7 - 25 %) 12.5 Coagulation PT (9.4 - 12.5 SEC) 13.1 H INR (0.90 - 1.19) 1.20 H APTT (25 - 37 SEC) 27 Hematology CBC w Diff NO MAN DIFF REQ WBC (4.8 - 10.8 /CUMM) 13.1 H RBC (4.20 - 5.40 /CUMM) 2.79 L Hgb (12.0 - 16.0 G/DL) 8.0 L Hct (37 - 47 %) 23.4 L MCV (81.0 - 99.0 FL) 83.8 MCH (27.0 - 31.0 PG) 28.7 MCHC (33.0 - 37.0 G/DL) 34.2 RDW (11.5 - 14.5 %) 15.0 H Plt Count (130 - 400 /CUMM) 403 H MPV (7.4 - 10.4 FL) 7.6 Gran % (42.2 - 75.2 %) 73.9 Lymphocytes % (20.5 - 51.1 %) 18.9 L Monocytes % (1.7 - 9.3 %) 4.7 Eosinophils % (0 - 5 %) 2.1 Basophils % (0.0 - 2.0 %) 0.4 Absolute Granulocytes (1.4 - 6.5 /CUMM) 9.7 H Absolute Lymphocytes (1.2 - 3.4 /CUMM) 2.5 Absolute Monocytes (0.10 - 0.60 /CUMM) 0.6 Absolute Eosinophils (0.0 - 0.7 /CUMM) 0.3 Absolute Basophils (0.0 - 0.2 /CUMM) 0 Assessment/Plan Assessment/Plan Imp: 1. R perinephric hematoma following R ureteroscopy for R mid ureteral stone. Hct appears to be stabilizing Plan: 1. D/c abx 2. Bed rest except for bathroom privileges until urine is grossly clear 3. Will check CBC in AM and if Hct is relatively stable will likely discharge in AM Core Measures Venous Thromboembolism VTE Risk Factors Immobility (`) No Mechanical VTE Prophylaxis d/t Other (venodynes have been ordered) No VTE Pharm Prophylaxis d/t Bleeding (Active)
[2017-05-21 13:54] VITALS: BP 122/76
[2017-05-21 21:42] VITALS: BP 122/68
[2017-05-22 06:01] VITALS: BP 118/78
--- NOTE | 2017-05-22 07:13 | PN- Urology ---
Subjective Subjective: Feels better. Had some nausea yesterday Objective Vital Signs and I&Os Vital Signs Date Time Temp Pulse Resp B/P B/P Pulse O2 O2 Flow FiO2 Mean Ox Delivery Rate 05/22 0601 98.4 97 20 118/78 96 Room Air 05/21 2142 99.5 98 18 122/68 97 05/21 1354 98.4 96 20 122/76 98 Room Air Intake & Output 05/22 0800 05/22 0000 05/21 1600 05/21 0800 05/21 0000 05/20 1600 Intake Total 322 426 0390 4351 727 5831 Output Total 400 400 600 400 250 400 Balance -280 -280 450 162 499 6647 Intake, IV 660 601 9759 Intake, Oral 120 120 800 240 360 700 Output, Urine 400 400 600 400 250 400 Back: Mild R CVA tenderness Abd: soft, some mild RUQ tenderness. No peritoneal signs Laboratory Tests 05/21 0742 Chemistry Sodium (137 - 145 mmol/L) 138 Potassium (3.5 - 5.1 mmol/L) 3.6 Chloride (98 - 107 mmol/L) 106 Carbon Dioxide (22 - 30 mmol/L) 22 Anion Gap (5 - 16) 10 BUN (7 - 17 mg/dL) 5 L Creatinine (0.5 - 1.0 mg/dL) 0.4 L Estimated GFR (>60 ml/min) > 60 BUN/Creatinine Ratio (7 - 25 %) 12.5 Coagulation PT (9.4 - 12.5 SEC) 13.1 H INR (0.90 - 1.19) 1.20 H APTT (25 - 37 SEC) 27 Hematology CBC w Diff NO MAN DIFF REQ WBC (4.8 - 10.8 /CUMM) 13.1 H RBC (4.20 - 5.40 /CUMM) 2.79 L Hgb (12.0 - 16.0 G/DL) 8.0 L Hct (37 - 47 %) 23.4 L MCV (81.0 - 99.0 FL) 83.8 MCH (27.0 - 31.0 PG) 28.7 MCHC (33.0 - 37.0 G/DL) 34.2 RDW (11.5 - 14.5 %) 15.0 H Plt Count (130 - 400 /CUMM) 403 H MPV (7.4 - 10.4 FL) 7.6 Gran % (42.2 - 75.2 %) 73.9 Lymphocytes % (20.5 - 51.1 %) 18.9 L Monocytes % (1.7 - 9.3 %) 4.7 Eosinophils % (0 - 5 %) 2.1 Basophils % (0.0 - 2.0 %) 0.4 Absolute Granulocytes (1.4 - 6.5 /CUMM) 9.7 H Absolute Lymphocytes (1.2 - 3.4 /CUMM) 2.5 Absolute Monocytes (0.10 - 0.60 /CUMM) 0.6 Absolute Eosinophils (0.0 - 0.7 /CUMM) 0.3 Absolute Basophils (0.0 - 0.2 /CUMM) 0 Assessment/Plan Assessment/Plan Imp: 1. R perinephric hematoma s/p R ureteroscopy and laser litho. Improving\ Plan: 1. Will discharge home today assuming CBC from this AM is ok 2. No strenuous activity 3. Tylenol for discomfort 4. Office f/u in one week Core Measures Venous Thromboembolism VTE Risk Factors Immobility (`) No Mechanical VTE Prophylaxis d/t Other (venodynes have been ordered) No VTE Pharm Prophylaxis d/t Bleeding (Active)
--- NOTE | 2017-05-22 07:22 | Discharge Summary ---
Visit Information Visit Dates Admission Date: 05/18/17 Discharge Date: 05/22/17 Hospital Course Course Attending Physician: Juan Tracy MD Primary Care Physician: Abilio Fitzgerald MD Hospital Course: Patient diagnosed with R perinephric hematoma. She was managed conservatively. She did require 2 units of blood transfusion Complications: none Allergies: Coded Allergies: No Known Allergies (05/18/17) Significant Procedures: none Pertinent Lab Results: Hematocrit of 24 on admission which dropped to 20 the following morning Disposition Summary Disposition Principal Diagnosis: R perinephric hematoma Additional Diagnosis: hypothyroidism Discharge Disposition: home or self care Discharge Instructions General Discharge Information Code Status: Full Code Patient's Diet: Regular Patient's Activity: No strenuous activity Follow-Up Instructions/Appts: Call office and make appointment for 1 week Medications at Discharge Discharge Medications: Stop taking the following medications: Cephalexin (Cephalexin) 500 MG CAPSULE ORAL Q8H Qty = 21 Oxycodone HCl/Acetaminophen (Oxycodone-Acetaminophen 5-325) 5 MG-325 MG TABLET ORAL Q4H as needed for PAIN Qty = 30 Continue taking these medications: Levothyroxine Sodium (Synthroid) 125 MCG TABLET 1 Tablet ORAL DAILY Copies To: Abilio Fitzgerald MD
[2017-05-22 09:02] LABS: ABSOLUTE BASOPHIL COUNT 0 /CUMM (0.0-0.2); ABSOLUTE EOSINOPHIL COUNT 0.2 /CUMM (0.0-0.7); ABSOLUTE GRANULOCYTE CT 9.8 /CUMM (1.4-6.5); ABSOLUTE LYMPH COUNT 2.1 /CUMM (1.2-3.4); ABSOLUTE MONOCYTE COUNT 0.8 /CUMM (0.10-0.60); BASOPHIL % 0.3 % (0.0-2.0); EOSINOPHIL % 1.6 % (0-5); GRANULOCYTE % 75.4 % (42.2-75.2); HEMATOCRIT 26.7 % (37-47); MEAN CORPUSCULAR HGB 28.1 PG (27.0-31.0); MEAN CORPUSCULAR HGB CONC 33.6 G/DL (33.0-37.0); MEAN CORPUSCULAR VOLUME 83.6 FL (81.0-99.0); PLATELET COUNT 550 /CUMM (130-400); RBC DISTRIBUTION WIDTH 14.7 % (11.5-14.5); WHITE BLOOD CELL COUNT 12.9 /CUMM (4.8-10.8)
== END 2017-05-22 11:40 | DRG 690 ==
LOC: ERH 15:22 → 2NB 21:41 → ERHI 21:41 → ENRESERV 22:09 → ENTRNSPT 22:32 → EDTRNSPT 22:35 → EDTRNSPTSTS 22:35 → 2NB 22:44 → CMPTRNSPT 22:51 → 2NB 23:29 → ENPENDDIS 05-22 09:56 → ENTRNSPT 05-22 11:28 → EDTRNSPT 05-22 11:38 → EDTRNSPTSTS 05-22 11:38 → 2NB 05-22 11:40 → CMPTRNSPT 05-22 11:56
PROVIDERS: Physician Assistant Medical; Physician Assistant Surgical; Urology
PROC: 30233N1 Transfusion of Nonautologous Red Blood Cells into Peripheral Vein, Percutaneous Approach (ICD-10-PCS; principal; 2017-05-19)
DX: N15.1 Renal and perinephric abscess (principal); E06.3 Autoimmune thyroiditis; Z87.891 Personal history of nicotine dependence; Z96.0 Presence of urogenital implants
CPT/HCPCS: 2NBP; 36415; 36592; 74177; 76775; 81001; 81025; 82436; 86920; 87086; 96374; 96375; J0690; J1885; J2405; P9016